=== PATIENT | female | born 1950 | race Two or more races ===

== ENCOUNTER → 2023-03-12 | Outpatient (CLI) | payer OTHER | END | disposition home or self-care (01) | LOC: Rad HDHVI 09:47 | PROVIDERS: ATTEND Internal Medicine Cardiovascular Disease | DX: I11.9 Hypertensive heart disease without heart failure (principal) | CPT/HCPCS: 93306 ==

== ENCOUNTER → 2023-04-14 | Outpatient (CLI) | payer OTHER ==
[~2023-04-14] MED LIST: ASPI-543 PO; ATOR40TA52 PO; CHOL100079 OR; CLON0.2T PO; FURO20TA3 PO; HYDR-4798 PO; IODIXANOL 320MG/ML 100ML BTL IV ONE; ISOS60TA24 PO; LANS30CA57 PO; LEVO100T8 PO; LIDOCAINE 2%HCL (LOCAL ANESTH.) INJ 20ML MDV ONE; MIDAZOLAM HCL 2MG/2ML 2ml VIAL (1mg/ml) ONE; NIF10C PO; NIFE1TAB30 PO; SACU1TAB7 PO; fentaNYL CITRATE 100 MCG/2 ML VL ONE
[2023-04-14 09:00] VITALS: BP 139/99; PULSE 66; RESP 18; O2SAT 97
[2023-04-14 09:15] VITALS: BP 167/82; PULSE 68; RESP 18; O2SAT 97
== END | disposition home or self-care (01) ==
LOC: Rad HDHVI 08:51
PROVIDERS: ATTEND Internal Medicine Cardiovascular Disease
DX: Z01.818 Encounter for other preprocedural examination (principal); R94.31 Abnormal electrocardiogram [ECG] [EKG]; I10 Essential (primary) hypertension
CPT/HCPCS: 71046; 93005; G0463

== ENCOUNTER 2023-04-15 06:48 | Day surgery (SDC) | payer OTHER, MEDICAID ==
[2023-04-14 11:44] LABS: Basophils # (auto) 0.1 10 ^3/uL (0-0.2); Basophils % (auto) 1.2 % (0.0-2.0); Eosinophils # (auto) 0.1 10 ^3/uL (0-0.8); Eosinophils % (auto) 0.8 % (0.0-7.0); Hematocrit 42.3 % (36.0-46.0); Hemoglobin 13.2 g/dL (12.2-16.2); Lymphocytes # (auto) 3.4 10 ^3/uL (0.4-5.4); Lymphocytes % (auto) 46.5 % (10.0-50.0); Mean Corpuscular Hemoglobin 27.5 pg (28.0-32.0); Mean Corpuscular Hgb Conc. 31.3 g/dL (32.0-36.0); Monocytes # (auto) 0.5 10 ^3/uL (0-1.3); Monocytes % (auto) 7.2 % (0.0-12.0); Neutrophils # (auto) 3.2 10 ^3/uL (1.6-8.6); Neutrophils % (auto) 44.3 % (37.0-80.0); Nucleated Red Blood Cells % 0.1 %; Red Blood Cells 4.81 10^6/uL (4.0-5.20); Red Cell Distribution Width 15.2 % (11.8-14.3); White Blood Cell 7.3 10^3/uL (4.4-10.8)
[2023-04-14 11:55] LABS: INR 1.05 (0.9-1.15); Partial Thromboplastin Time 31.9 SEC (24.5-34.5)
[2023-04-14 12:18] LABS: Anion Gap 6 (5-15); Carbon Dioxide 29 mmol/L (20-30); Chloride 108 mmol/L (98-107); Potassium 3.8 mmol/L (3.5-5.1); Sodium 143 mmol/L (136-145)
[2023-04-14 12:20] LABS: Calcium 9.5 mg/dL (8.5-10.1)
[2023-04-14 12:24] LABS: BUN/Creatinine Ratio 16.7 (10.0-20.0); Blood Urea Nitrogen 12 mg/dL (9-23); Glucose 88 mg/dL (74-106)
[~2023-04-15] VITALS: Ht 165.1 cm; Wt 106.1 kg
[2023-04-15] VITALS (9 sets, daily range): BP systolic 93–153; BP diastolic 58–75; PULSE 51–61; RESP 12–13; O2SAT 94–98
[~2023-04-15 06:48] MED LIST changes: -IODIXANOL 320MG/ML 100ML BTL IV ONE; -LIDOCAINE 2%HCL (LOCAL ANESTH.) INJ 20ML MDV ONE; -MIDAZOLAM HCL 2MG/2ML 2ml VIAL (1mg/ml) ONE; -NIF10C PO; -fentaNYL CITRATE 100 MCG/2 ML VL ONE
[2023-04-15] MEDS: ACETAMINOPHEN 325 MG TAB PO ONE (14:10)
== END 2023-04-15 15:07 | disposition home or self-care (01) ==
LOC: CATH 06:48
PROVIDERS: ATTEND Internal Medicine Cardiovascular Disease
DX: I42.0 Dilated cardiomyopathy (principal); I11.0 Hypertensive heart disease with heart failure; I50.40 Unspecified combined systolic (congestive) and diastolic (congestive) heart failure; Z88.6 Allergy status to analgesic agent; Z79.82 Long term (current) use of aspirin; Z87.891 Personal history of nicotine dependence; Z79.899 Other long term (current) drug therapy
CPT/HCPCS: 36415; 80048; 85025; 85610; 85730; 93458; C1894; J1644; J2250; J3010; Q9967; 99152